=== PATIENT | male | born 1965 | race Caucasian/White ===

== ENCOUNTER → 2024-01-14 06:15 | Day surgery (SDC) | payer OTHER, SELFPAY | LOC: GI 06:15 | PROVIDERS: ATTENDING PHYSICIAN Internal Medicine | DX: Z12.11 Encounter for screening for malignant neoplasm of colon (principal); K57.30 Diverticulosis of large intestine without perforation or abscess without bleeding; K63.5 Polyp of colon; D12.3 Benign neoplasm of transverse colon | CPT/HCPCS: 45385; 45380; 88305 ==

== ENCOUNTER → 2024-10-16 15:54 | Outpatient (REF) | payer OTHER, SELFPAY ==
[2024-10-16 16:32] LABS: Blood Urea Nitrogen 18 mg/dl (9-20); Calcium 9.2 mg/dl (8.4-10.2); Carbon Dioxide 29 mmol/L (22-30); Chloride 100 mmol/L (98-107); Glucose 97 mg/dl (70-99); Potassium 4.4 mmol/L (3.5-5.1); Sodium 139 mmol/L (135-145); eGFR > 60.00
== END ==
LOC: RAD 15:54
PROVIDERS: ATTENDING PHYSICIAN Family Medicine
DX: S09.8XXA Other specified injuries of head, initial encounter (principal); Z01.818 Encounter for other preprocedural examination
CPT/HCPCS: 36415; 70450; 80048